=== PATIENT | female | born 1975 | race Caucasian/White ===

== ENCOUNTER 2017-04-18 20:30 | Emergency (ER) | payer SELFPAY ==
[~2017-04-18] VITALS: Ht 157.5 cm; Wt 100.9 kg
[~2017-04-18 20:30] MED LIST: ANTIVERT 25MG25 MG PO; ASPIRIN 81M81 MG/TA2 PO; CLEOCIN HCL300 MG PO; EC NAPROSYN375 MG PO; EC NAPROSYN500 MG PO; GLUCOPHAGE500 MG/TAB PO; LASIX 20MG TABL20 MG PO; MOTRIN 800800 MG/TAB PO; NAPROSYN 2250 MG/TAB PO; NO HOME MEDICATIONS; NORCO 325 MG-51 TAB PO; PERCOCET 325 MG1 TA2 PO; PHENERGAN 25 TA25 MG PO; PRILOSEC 20MG20 MG PO; PRINIVIL5 MG PO; PROMETHAZINE12.5 M5 PO; ULTRAM 50MG TAB50 MG PO; VALIUM 5MG T5 MG/TAB PO; ZOFRAN8 MG PO
[2017-04-18 20:34] VITALS: BP 121/73; TEMP 99
[2017-04-18 21:17] LABS: BASO % 0.4 % (0.0-2.0); EOS # 0.1 (0.0-0.7); EOS % 1.3 % (0-4.0); GRAN # 5.2 (1.4-6.5); HEMATOCRIT 34.4 % (37.0-47.0); HEMOGLOBIN 11.1 g/dl (12.5-16.0); LYMPH # 2.4 (1.2-3.4); LYMPH % 28.7 % (20.0-51.0); MEAN CELL VOLUME 85 fl (80.0-100.0); MEAN CORPUSCULAR HEMOGLOBIN 27 pg (27.0-31.0); MEAN CORPUSCULAR HGB CONC 32 g/dl (33.0-37.0); MEAN PLATELET VOLUME 8.9 fl (7.4-10.4); MONO # 0.5 (0.1-0.6); PLATELET COUNT 296 K/mm3 (130-400); RED BLOOD COUNT 4.05 M/mm3 (4.10-5.30); REDCELL DISTRIBUTION WIDTH-CV 15.2 % (11.5-14.5)
[2017-04-18 21:27] LABS: ALBUMIN 3.9 gm/dL (3.5-5.0); BILIRUBIN,TOTAL 0.4 mg/dL (0.0-1.0); CALCIUM 8.8 mg/dL (8.4-10.2); CREATININE, serum 0.51 mg/dL (0.52-1.25); POTASSIUM 3.7 mmol/L (3.4-5.0); TOTAL PROTEIN 7.2 gm/dL (6.4-8.2)
[2017-04-18] MEDS ORDERED: ZOFRAN ODT4 MG PO (22:02)
[2017-04-18 23:00] VITALS: PULSE 94
== END 2017-04-18 23:00 | disposition home or self-care (01) ==
LOC: COL.ER 20:30
PROVIDERS: Emergency Medicine
DX: R19.7 Diarrhea, unspecified (principal); R11.10 Vomiting, unspecified; Z90.89 Acquired absence of other organs; Z98.890 Other specified postprocedural states
CPT/HCPCS: J1885; J2405; J2550; J7030

== ENCOUNTER 2019-08-14 16:03 | Emergency (ER) | payer SELFPAY ==
[~2019-08-14] VITALS: Ht 157.5 cm; Wt 101.4 kg
[~2019-08-14 16:03] MED LIST changes: +ZOFRAN ODT4 MG PO
[2019-08-14 16:28] VITALS: TEMP 98.3
[2019-08-14] MEDS ORDERED: AMOXICILLIN 8751 TAB PO (17:47)
[2019-08-14 18:10] VITALS: BP 135/87; PULSE 89
== END 2019-08-14 18:10 | disposition home or self-care (01) ==
LOC: COL.ER 16:03
DX: S61.232A Puncture wound without foreign body of right middle finger without damage to nail, initial encounter (principal); S61.234A Puncture wound without foreign body of right ring finger without damage to nail, initial encounter; I10 Essential (primary) hypertension; E11.9 Type 2 diabetes mellitus without complications; Z23 Encounter for immunization; Z79.84 Long term (current) use of oral hypoglycemic drugs; Z88.8 Allergy status to other drugs, medicaments and biological substances; W54.0XXA Bitten by dog, initial encounter; Y92.830 Public park as the place of occurrence of the external cause

== ENCOUNTER 2021-03-15 00:10 | Emergency (ER) | payer MEDICAID ==
[~2021-03-15] VITALS: Ht 152.4 cm; Wt 90.9 kg
[~2021-03-15 00:10] MED LIST changes: +AMOXICILLIN 8751 TAB PO
[2021-03-15] MEDS ORDERED: AMOXICILLIN 8751 TAB PO ×3 (00:56→01:25)
[2021-03-15 01:00] VITALS: BP 119/78; PULSE 94; TEMP 97.8
== END 2021-03-15 01:22 | disposition home or self-care (01) ==
LOC: COL.ER 00:10
DX: S40.871A Other superficial bite of right upper arm, initial encounter (principal); E11.9 Type 2 diabetes mellitus without complications; Z79.84 Long term (current) use of oral hypoglycemic drugs; W54.0XXA Bitten by dog, initial encounter